=== PATIENT | female | born 1995 | race Hispanic/Latino ===

== ENCOUNTER 2018-12-05 21:33 | Emergency (ER) | payer SELFPAY ==
--- NOTE | 2018-12-05 21:45 | Emergency Department Report ---
Blank Doc - Documentation Documentation: 18 weeks preg with SOB started yesterday. . Cough no fevers. R 22, O2 sats 94% on RA. HR 98 This initial assessment diagnostic orders/clinical plan/treatment (s) is/Are subject change based on patient's health status, clinical progression and re- assessment by fellow clinical providers in the ED. Further treatment and work-up at subsequent clinical providers discretion. Patient/guardians urged not to elope from their condition may be serious if not clinically assessed and managed. Initial order include:
[2018-12-05 22:03] LABS: Basophils # (Auto) 0.1 K/mm3 (0.0-0.1); Basophils % (Auto) 0.5 % (0.0-1.8); Eosinophils # (Auto) 0.4 K/mm3 (0.0-0.4); Eosinophils % (Auto) 3.5 % (0.0-4.3); Hematocrit 37.9 % (30.3-42.9); Hemoglobin 13.4 gm/dl (10.1-14.3); Lymphocytes # (Auto) 3.3 K/mm3 (1.2-5.4); Lymphocytes % (Auto) 31.3 % (13.4-35.0); Mean Corpuscular HGB Conc 35 % (30-34); Mean Corpuscular Hemoglobin 32 pg (28-32); Mean Corpuscular Volume 89 fl (79-97); Monocytes # (Auto) 0.5 K/mm3 (0.0-0.8); Platelet Count 272 K/mm3 (140-440); Red Blood Count 4.24 M/mm3 (3.65-5.03); Red Cell Distribution Width 12.5 % (13.2-15.2)
[2018-12-05 22:19] LABS: Alanine Aminotransferase 12 units/L (7-56); Albumin 3.7 g/dL (3.9-5); BUN/Creatinine Ratio 7; Blood Urea Nitrogen 4 mg/dL (7-17); Calcium 8.7 mg/dL (8.4-10.2); Hemolysis Index 4
[2018-12-05] MEDS ORDERED: ATROVENT IH ONE (22:41)
[2018-12-05] MEDS ORDERED: PROVENTIL IH ONE (22:41)
--- NOTE | 2018-12-05 22:49 | Emergency Department Report ---
ED Shortness of Breath HPI - General Chief Complaint: Dyspnea/Respdistress Stated Complaint: 18WKS /SOB/LIGHT HEADED Time Seen by Provider: 12/05/18 22:26 Source: patient Mode of arrival: Ambulatory Limitations: No Limitations - History of Present Illness Initial Comments: 23 yo female presents to ED with complaint of shortness of breath since y esterday. Patient states she had a tooth pulled on yesterday, and since then she has been experiencing shortness of breath, nausea and vomiting, and dizziness. The patient is 18 weeks . Currently followed by [facility]. Patient denies fever, cough, chest pain, leg pain or swelling. MD Complaint: shortness of breath -: days(s) (1) Severity: mild Consistency: constant Improves With: nothing Worsens With: nothing Known History Of: asthma (as a child) Treatments Prior to Arrival: none - Related Data Previous Rx's Medication Instructions Recorded Last Taken Type ALBUTEROL Inhaler(NF) [VENTOLIN 1 puff IH Q4HR PRN #1 inha 12/05/18 Unknown Rx Inhaler(NF)] Promethazine [Phenergan TAB] 25 mg PO Q6HR PRN #20 tab 12/05/18 Unknown Rx Allergies Allergy/AdvReac Type Severity Reaction Status Date / Time Penicillins AdvReac Intermediate Unknown Verified 12/01/15 18:42 codeine AdvReac Swelling Verified 12/02/15 20:31 ED Review of Systems ROS: Stated complaint: 18WKS /SOB/LIGHT HEADED Other details as noted in HPI Comment: All other systems reviewed and negative Constitutional: denies: chills, fever Respiratory: shortness of breath. denies: cough Cardiovascular: denies: chest pain Gastrointestinal: nausea, vomiting Musculoskeletal: other (denies leg pain or swelling) ED Past Medical Hx - Past Medical History Hx Hypertension: Yes (Gestational) Hx Heart Attack/AMI: No Hx Congestive Heart Failure: No Hx Diabetes: No Hx Deep Vein Thrombosis: No Hx Renal Disease: No Hx Sickle Cell Disease: No Hx Seizures: No Hx Asthma: Yes Hx COPD: No Hx HIV: No - Surgical History Past Surgical History?: No - Social History Smoking Status: Current Every Day Smoker Substance Use Type: None - Medications Home Medications: Home Medications Medication Instructions Recorded Confirmed Last Taken Type ALBUTEROL Inhaler(NF) [VENTOLIN 1 puff IH Q4HR PRN #1 inha 12/05/18 Unknown Rx Inhaler(NF)] Promethazine [Phenergan TAB] 25 mg PO Q6HR PRN #20 tab 12/05/18 Unknown Rx ED Physical Exam - General Limitations: No Limitations General appearance: alert, in no apparent distress - Head Head exam: Present: atraumatic, normocephalic - Eye Eye exam: Present: normal appearance - ENT ENT exam: Present: mucous membranes moist - Neck Neck exam: Present: normal inspection - Respiratory Respiratory exam: Present: normal lung sounds bilaterally. Absent: respiratory distress - Cardiovascular Cardiovascular Exam: Present: regular rate - GI/Abdominal GI/Abdominal exam: Present: soft. Absent: distended, tenderness - Extremities Exam Extremities exam: Present: normal inspection. Absent: pedal edema, calf tenderness - Neurological Exam Neurological exam: Present: alert, oriented X3 - Psychiatric Psychiatric exam: Present: normal affect, normal mood - Skin Skin exam: Present: warm, dry, intact, normal color ED Course Vital Signs 12/05/18 12/05/18 12/05/18 21:36 21:44 23:13 Temperature 97.3 F L Pulse Rate 98 H Pulse Rate [ 76 Bilateral Throughout] Respiratory 22 Rate Respiratory 18 Rate [Bilateral Throughout] Blood Pressure 125/80 Blood Pressure [Left] O2 Sat by Pulse 94 Oximetry 12/05/18 23:55 Temperature 98.0 F Pulse Rate 72 Pulse Rate [ Bilateral Throughout] Respiratory 20 Rate Respiratory Rate [Bilateral Throughout] Blood Pressure Blood Pressure 110/54 [Left] O2 Sat by Pulse 98 Oximetry ED Medical Decision Making - Lab Data Result diagrams: 12/05/18 21:50 12/05/18 21:50 - Radiology Data Radiology results: report reviewed, image reviewed - Medical Decision Making Patient feeling much better following nebulizer treatment. She has been in no respiratory distress, O2 sats normal, CXR normal, D-dimer normal. Patient actualy got up and ran to the bathroom b/c she needed to use it badly. Patient returned in no distress. Will discharge at this time w/ albuterol inhaler. Return precautions given. Outpatient follow up advised. - Differential Diagnosis asthma, pneumonia, pulm edema, PE Critical care attestation.: If time is entered above; I have spent that time in minutes in the direct care of this critically ill patient, excluding procedure time. ED Disposition Clinical Impression: Dyspnea Disposition: DC-01 TO HOME OR SELFCARE Is pt being admited?: No Condition: Stable Instructions: Dyspnea (ED) Prescriptions: ALBUTEROL Inhaler(NF) [VENTOLIN Inhaler(NF)] 1 puff IH Q4HR PRN #1 inha PRN Reason: Wheezing Promethazine [Phenergan TAB] 25 mg PO Q6HR PRN #20 tab PRN Reason: Nausea Referrals: PRIMARY CARE, [Referring] - 3-5 Days Time of Disposition: 23:49
--- NOTE | 2018-12-05 22:51 | XRay Report ---
PROCEDURE: XR CHEST ROUTINE 2V TECHNIQUE: PA and lateral views of the chest HISTORY: 18 wks preg with SOB and pulse ox 94% COMPARISONS: None FINDINGS: There is no evidence of infiltrate, pneumothorax or pleural fluid collection. The cardiomediastinal silhouette is normal in appearance. The bony structures are unremarkable. IMPRESSION: 1. No plain film evidence of an acute pulmonary process. This document is electronically signed by Renetta Pimentel MD., December 05 2018 10:48:48 PM ET
[2018-12-05 23:55] VITALS: BP 110/54
== END 2018-12-06 | disposition home or self-care (01) ==
LOC: ED 21:33
DX: R06.02 Shortness of breath (principal); R06.00 Dyspnea, unspecified; R11.2 Nausea with vomiting, unspecified; R42 Dizziness and giddiness; I10 Essential (primary) hypertension; J45.909 Unspecified asthma, uncomplicated; F17.200 Nicotine dependence, unspecified, uncomplicated; Z88.0 Allergy status to penicillin; Z88.5 Allergy status to narcotic agent
CPT/HCPCS: 36415; 71046; 80053; 85025; 85379; 93005; 93010; 94640

== ENCOUNTER 2019-04-17 11:11 | Outpatient (CLI) | payer OTHER ==
[2019-04-17 11:38] VITALS: BP 100/65
[2019-04-17 12:22] LABS: Bacteria,Urine 1+ /HPF (Negative); Bilirubin,Urine NEG (Negative); Blood,Urine NEG (Negative); Color,Urine Amber (Yellow); Mucus,Urine 3+ /HPF; Urobilinogen,Urine < 2.0 mg/dL (<2.0)
--- NOTE | 2019-04-17 12:22 | Ultrasound Report ---
Limited OB Ultrasound Biophysical profile HISTORY: patient reportedly leaking fluid today, concern for premature rupture of membranes. TECHNIQUE: Grayscale and color Doppler imaging performed. COMPARISON: None FINDINGS: Limited ultrasound performed which demonstrated a single intrauterine gestation which is ce phalic in presentation. JEMMA is 12. Heart rate is 131 bpm. age was not determined on this examin ation. On biophysical profile, the fetus received a score of 2 out of 2 for breathing movements, movements, posture and Sofia, and qualitative amniotic fluid volume. Total score was 8 out of 8. IMPRESSION: 1. JEMMA of 12 with single intrauterine gestation as above. 2. Normal biophysical profile. Signer Name: Uriel Sales MD Signed: 04/17/2019 12:17 PM Workstation Name: [id number]
== END 2019-04-17 12:31 | disposition home or self-care (01) ==
LOC: TRG 11:11
PROVIDERS: ATTEND Obstetrics & Gynecology
DX: O47.03 False labor before 37 completed weeks of gestation, third trimester (principal); O13.3 Gestational [pregnancy-induced] hypertension without significant proteinuria, third trimester; O99.513 Diseases of the respiratory system complicating pregnancy, third trimester; J45.909 Unspecified asthma, uncomplicated; Z3A.34 34 weeks gestation of pregnancy
CPT/HCPCS: 76815; 76819; 81001

== ENCOUNTER 2019-05-16 21:16 | Inpatient (IN) | payer OTHER ==
[2019-05-17] MEDS ORDERED: XYLOCAINE 2% INFILTRATI ONE (00:22)
--- NOTE | 2019-05-17 00:26 | History and Physical Report ---
History of Present Illness Date of examination: 05/16/19 Date of admission: 05/16/19 21:16 Chief complaint: Here for scheduled induction of labor. History of present illness: 23 year old presented to L&D for scheduled induction of labor. Patient is having labor induced due to history of IUFD with a previous . Patient has received care at [facility], and records were able to be accessed. LMP 07/27/18. EDC 05/23/19. significant for the following: history of IUFD with a previous ; obesity, cigarette smoker, history of preeclampsia with a previous , history of genital herpes. labs are as follows: B+, antibody screen negative, hepatitis B surface antigen negative, HIV negative, RPR nonreactive, GC negative, CT negative, rubella immune, pap smear negative, 1 hour sugar test 124, quad screen negative, GBS negative. 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 denies: chlamydia, gonorrhea, hepatitis B, hepatitis C, HIV, syphilis Family/Genetic History: diabetes, heart disease, hypertension, stroke, cancer, other (lupus) Social history: lives with family, smoking, full code. denies: alcohol abuse, prescription drug abuse, IV drug use - Obstetrical History Expected Date of Delivery: 05/23/19 Actual Gestation: 39 Week(s) 1 Day(s) : 4 Para: 2 Hx # Term Pregnancies: 2 Number of Pregnancies: 0 Spontaneous Abortions: 1 Induced : 0 Medications and Allergies Allergies Allergy/AdvReac Type Severity Reaction Status Date / Time Penicillins AdvReac Intermediate Unknown Verified 12/01/15 18:42 codeine AdvReac Swelling Verified 12/02/15 20:31 Home Medications Medication Instructions Recorded Confirmed Last Taken Type ALBUTEROL Inhaler(NF) [VENTOLIN 1 puff IH Q4HR PRN #1 inha 12/05/18 Unknown Rx Inhaler(NF)] Promethazine [Phenergan TAB] 25 mg PO Q6HR PRN #20 tab 12/05/18 Unknown Rx Review of Systems All systems: negative - Physical Exam Abdomen: Positive: normal appearance, soft. Negative: distention, tenderness, guarding Genitourinary (Female): Positive: normal external genitalia (drying cluster of lesions versus rash on right buttock), normal perenium Vagina: Positive: normal moisture Uterus: Positive: enlarged. Negative: nodular, tender Anus/Rectum: Positive: normal perianal skin Extremities: Positive: normal. Negative: tenderness, edema - Obstetrical FHR: category 1 Uterine Contraction Monitor Mode: External Cervical Dilatation: 3 Cervical Effacement Percentage: 70 Uterine Contraction Pattern: Irregular Uterine Contraction Intensity: Mild Results All other labs normal. Assessment and Plan A: at 39 weeks, 1 day gestation. Previous IUFD. GBS negative. History of genital herpes, not on suppression. P: Admit. Herpes suppression with Valtrex. Continuous EFM. Will consult with Dr. Wyman re: this patient.
[2019-05-17] MEDS ORDERED: PITOCin/NS 20 UNIT/1000ML DRIP 20 UNITS/1,000 ML BAG IV SCH (01:00)
[2019-05-17] MEDS ORDERED: LACTATED RINGERS 1,000 ML IV SCH (01:00)
[2019-05-17 01:44] LABS: Hematocrit 37.3 % (30.3-42.9); Hemoglobin 12.6 gm/dl (10.1-14.3); Mean Corpuscular HGB Conc 34 % (30-34); Mean Corpuscular Volume 92 fl (79-97); Platelet Count 282 K/mm3 (140-440); Red Blood Count 4.04 M/mm3 (3.65-5.03); Red Cell Distribution Width 12.3 % (13.2-15.2)
[2019-05-17] MEDS: VALTREX PO SCH ×2 (04:26→10:59)
--- NOTE | 2019-05-17 13:36 | Progress Note ---
Assessment and Plan A: at 39 weeks, 1 day gestation. History of IUFD with her first pegnancy. GBS negative. Skin rash. History of genital herpes, has not been taking suppression during this . BPP 05/15. P: Consulted with Dr. Robles re: this patient and skin rash. Had long conversation with patient re: possible etiologies for the rash, potential that it could be an outbreak or not, herpes transmission, possible sequelae during and (including blindness, seizures, brain damage, and ). Patient states she would like to go home and take her herpes suppression for a couple of days and then return for induction. BPP/JEMMA done. Dr. Robles en route to hospital to review heart rate tracing and make decision re: disposition of patient. Herpes culture and serology done. Subjective - Subjective Date of service: 05/17/19 Principal diagnosis: at 39 weeks, 1 day gestation; history of IUFD previous ; Interval history: Patient was sent from [facility] office yesterday to be induced due to history of IUFD with her first pregnacy. Patient reportedly has a history of genital herpes but has not been on suppression for this during her . Patient reported a rash at admission yesterday; she states the rash comes and goes. Vesicular rash noted on patient's right buttock and right lower abdomen; rash appears to be drying. Patient states there it itching associated with rash. Patient was started on Valtrex 1 gram PO BID and observed on monitor overnight. She had some irregular contractions overnight. She denies vaginal bleeding or leaking of fluid. Patient reports active movement. Patient reports: movement normal, contractions, no new complaints, no loss of fluid, no vaginal bleeding Objective - Vital Signs Vital Signs: Vital Signs - 12hr 05/17/19 05/17/19 05/17/19 02:30 03:21 07:20 Temperature 97.3 F L Pulse Rate 70 68 Respiratory Rate Blood Pressure 106/57 114/64 O2 Sat by Pulse Oximetry 05/17/19 05/17/19 07:30 12:27 Temperature 97.9 F Pulse Rate 69 Respiratory 18 Rate Blood Pressure 125/58 O2 Sat by Pulse 100 Oximetry - Exam Abdomen: Present: normal appearance, soft. Absent: distention, tenderness, guarding, rigidity Uterus: Present: normal, fundal height above umbilicus. Absent: tenderness FHR: category 1 Uterine Contraction Monitor Mode: External Cervical Dilatation: 3.5 Cervical Effacement Percentage: 75 station: -2 Uterine Contraction Pattern: Irregular Uterine Contraction Intensity: Mild Extremities: normal - Labs Labs: Abnormal Labs 05/17/19 01:26 WBC 13.1 H RDW 12.3 L Laboratory Results - last 24 hr 05/17/19 05/17/19 01:26 01:26 WBC 13.1 H RBC 4.04 Hgb 12.6 Hct 37.3 MCV 92 MCH 31 MCHC 34 RDW 12.3 L Plt Count 282 Blood Type B POSITIVE Antibody Screen Negative
--- NOTE | 2019-05-17 13:53 | Ultrasound Report ---
US OB BPP WO NON-STRESS, US OB LIMITED INDICATION / CLINICAL INFORMATION: well being. Evaluate amniotic fluid index. COMPARISON: Ultrasound dated 04/17/19 TECHNIQUE: Transabdominal FINDINGS: Single intrauterine gestation with fetus in cephalic position. Amniotic fluid volume is borderline low at the fluid index of 7.0 cm. Amniotic fluid index on prior s tudy was 12 cm. heart rate is 129 bpm. BREATHING MOVEMENT = 2 GROSS BODY MOVEMENT = 2 TONE = 2 QUALITATIVE AMNIOTIC FLUID VOLUME = 2 TOTAL BIOPHYSICAL SCORE = 8/8 IMPRESSION: 1. Borderline low amniotic fluid index of 7.0 cm with decrease since prior study. 2. Total biophysical score is 8/8. Signer Name: Jose Montgomery MD Signed: 05/17/2019 1:49 PM Workstation Name: [id number]
--- NOTE | 2019-05-17 15:20 | Event Note ---
Date: 05/17/19 Dr. Robles saw and examined patient and reviewed heart rate tracing and ultrasound results. Dr. Robles orders to discharge patient home and have her rest at home, drink plenty of water, and continue Valtrex 1 gram po BID at home for HSV suppression. Dr. Robles states to have patient return to L&D on Sunday05/19/19 for BPP and JEMMA and NST and will re-evaluate rash at that time. Patient to have labor induced when rash resolves. Patient to continue to count movements daily. Labor precautions and warning signs discussed with patient by Dr. Robles. Rx Valtrex 1 sari po BID, #30, 0 RF called to [facility] pharmacy on [facility] [facility] and left on the voice mail; advised patient to pick this up at the pharmacy and take it as prescribed.
--- NOTE | 2019-05-17 15:41 | Discharge Summary ---
Providers - Providers Date of Admission: 05/16/19 21:16 Date of discharge: 05/17/19 Attending physician: Darrick Carroll MD None Primary care physician: DARRICK CARROLL MD Hospitalization Reason for admission: induction of labor Delivery: other ( at 39 weeks, 1 day gestation; undelivered) Pertinent studies: Electronic monitoring, ultrasound, labs. Hospital course: Stable hospital course; possible herpes outbreak, being suppressed with Valtrex 1 gram po BID. Cervix 3 cm and long per Dr. Carroll's exam. Dr. Carroll orders for patient to be discharged home on PO Valtrex and return to L&D on Sunday05/19/19. Condition at discharge: Good Disposition: DC-01 TO HOME OR SELFCARE - Discharge Diagnoses (1) Term Status: Acute Plan - Provider Discharge Summary Activity: other (rest at home; drink plenty of water; take Valtrex 1 gram by mouth every 12 hours as prescribed and e) Diet: routine Instructions: routine Additional instructions: [Rx Valtrex 1 gram, #30, 1 po BID called to [facility] pharmacy on [facility]. Call your doctor immediately for any problems; return to hospital if labor, leaking of water, vaginal bleeding, decreased movement, or any other problems. Return to hospital Sunday05/19/19 in the morning for NST and Ultrasound and to re-evaluate by the doctor. Drink plenty of water and rest at home. Thank you. - Follow up plan Follow up: DARRICK CARROLL MD [Primary Care Provider] - 05/19/19 (Follow up on Sunday05/19/19 here at [facility]. )
[2019-05-17] MEDS ORDERED: PEPCID PO ONE (15:53)
[2019-05-20 09:51] VITALS: BP 113/70
== END 2019-05-17 16:28 | disposition home or self-care (01) | DRG 781 ==
LOC: APU 21:16 → LD 23:36
PROVIDERS: ADMIT Obstetrics & Gynecology; ATTEND Obstetrics & Gynecology
DX: O98.313 Other infections with a predominantly sexual mode of transmission complicating pregnancy, third trimester (principal); O99.333 Smoking (tobacco) complicating pregnancy, third trimester; O99.213 Obesity complicating pregnancy, third trimester; E66.9 Obesity, unspecified; F17.210 Nicotine dependence, cigarettes, uncomplicated; Z3A.39 39 weeks gestation of pregnancy
CPT/HCPCS: 36415; 76815; 76819; 85027; 86592; 86850; 86900; 86901; 87255; 87529; G0378; J7120

== ENCOUNTER 2019-05-19 21:33 | Inpatient (IN) | payer OTHER ==
[2019-05-19] MEDS ORDERED: PITOCin/NS 30 UNIT/500ML 30 UNITS/500 ML BAG IV SCH (23:45)
[2019-05-19] MEDS ORDERED: SUBLIMAZE IV PRN (23:55)
[2019-05-19] MEDS ORDERED: STADOL IV PRN (23:55)
[2019-05-20 00:25] LABS: Hematocrit 37.2 % (30.3-42.9); Hemoglobin 12.6 gm/dl (10.1-14.3); Mean Corpuscular HGB Conc 34 % (30-34); Mean Corpuscular Volume 93 fl (79-97); Platelet Count 293 K/mm3 (140-440); Red Blood Count 3.98 M/mm3 (3.65-5.03); Red Cell Distribution Width 12.5 % (13.2-15.2)
[2019-05-20] MEDS ORDERED: PITOCin/NS 30 UNIT/500ML 30,000 MILLIUNITS/500 ML BAG IV ONE (00:56)
[2019-05-20] MEDS ORDERED: LACTATED RINGERS 1,000 ML ONE (00:56)
[2019-05-20] MEDS: LACTATED RINGERS 1,000 ML IV SCH ×3 (01:00→10:27)
[2019-05-20] MEDS ORDERED: STADOL ONE (05:20)
[2019-05-20] MEDS ORDERED: LACTATED RINGERS 2,000 ML ONE (09:11)
--- NOTE | 2019-05-20 10:31 | Anesthesia Consultation ---
Anesthesia Consult and Med Hx Date of service: 05/20/19 - Airway Anesthetic Teeth Evaluation: Good ROM Head & Neck: Adequate Mental/Hyoid Distance: Adequate Mallampati Class: Class II Intubation Access Assessment: Probably Good - Pulmonary Exam CTA: Yes - Cardiac Exam Cardiac Exam: RRR - Pre-Operative Health Status ASA Pre-Surgery Classification: ASA2 Proposed Anesthetic Plan: Epidural - Pulmonary Hx Asthma: Yes (CHILDHOOD ASTHMA) COPD: No Hx Pneumonia: No - Cardiovascular System Hx Hypertension: No Hx Coronary Artery Disease: No Hx Heart Attack/AMI: No Hx Angina: No Hx Cardia Arrhythmia: No Hx Heart Murmur: No - Central Nervous System Hx Seizures: No Hx Psychiatric Problems: No - Endocrine Hx Renal Disease: No Hx End Stage Renal Disease: No Hx Hypothyroidism: No Hx Hyperthyroidism: No - Hematic Hx Anemia: No Hx Sickle Cell Disease: No - Other Systems Hx Alcohol Use: No
[2019-05-20] MEDS ORDERED: fentaNYL-BUPIV 2 MCG/ML-0.125% 200 MCG/100 ML BAG EPIDURAL SCH (11:00)
[2019-05-20] MEDS ORDERED: NARCAN 2 MG/2 ML IV PRN (11:00)
--- NOTE | 2019-05-20 15:04 | History and Physical Report ---
History of Present Illness Date of examination: 05/20/19 Date of admission: 05/19/19 21:33 Chief complaint: Presents for IOL History of present illness: 23 yo Cauc[place] Fe , JOSELIN 05/23/2019 ([place]), 39w 4d, presents for IOL. Pt initiated early care with [facility] at 7w 6d. Co-managed with [facility]: Asthma, Smoker (2-3 cig/day), h/o IUFD @ 28 wks, h/po PIH previous , and Obesity (BMI 38.41). Early complicated with N&V. labs: B positive, Rubella Immune, VDRL non-reactive, HBsAg negative, HIV Negative, GC negative, CHL Negative, Trichomoniasis Negative, GBS Negative. 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 denies: alcohol abuse, prescription drug abuse, IV drug use - Obstetrical History Expected Date of Delivery: 05/23/19 Actual Gestation: 39 Week(s) 4 Day(s) : 4 Para: 2 Hx # Term Pregnancies: 2 Number of Pregnancies: 0 Spontaneous Abortions: 1 Induced : 0 Number of Living Children: 2 #1 Infant Gender: Male year: 2,013 Method of Delivery: Vaginal Gestational age at delivery: 28 (IUFD at 28 wks) #2 Infant Gender: Female year: 2,016 Method of Delivery: Vaginal Gestational age at delivery: 40 Complications: none Medications and Allergies Allergies Allergy/AdvReac Type Severity Reaction Status Date / Time Penicillins AdvReac Intermediate Unknown Verified 12/01/15 18:42 codeine AdvReac Swelling Verified 12/02/15 20:31 Home Medications Medication Instructions Recorded Confirmed Last Taken Type ALBUTEROL Inhaler(NF) [VENTOLIN 1 puff IH Q4HR PRN #1 inha 12/05/18 05/20/19 Unknown Rx Inhaler(NF)] Active Meds: Active Medications Butorphanol Tartrate (Stadol) 2 mg IV Q2H PRN PRN Reason: Pain , Severe (7-10) Last Admin: 05/20/19 05:19 Dose: 2 mg Documented by: Ephedrine Sulfate (Ephedrine Sulfate) 10 mg IV Q2M PRN PRN Reason: Hypotension Last Admin: 05/20/19 12:29 Dose: 10 mg Documented by: Fentanyl (Sublimaze) 100 mcg IV Q2H PRN PRN Reason: Labor Pain Oxytocin/Sodium Chloride (Pitocin/Ns 30 Unit/500ml) 30 units in 500 mls @ 1 mls/hr IV TITR KAMERON; Protocol Last Titration: 05/20/19 13:24 Dose: 18 mls/hr, 18 mls/hr Documented by: Lactated Ringer's (Lactated Ringers) 1,000 mls @ 125 mls/hr IV DIRECT KAMERON Last Admin: 05/20/19 10:27 Dose: 125 mls/hr Documented by: Fentanyl/Bupivacaine/Sodium Chlor (Fentanyl-Bupiv 2 Mcg/Ml-0.125%) 200 mcg in 100 mls @ 12 mls/hr EPIDURAL TITR KAMERON; Protocol Last Admin: 05/20/19 11:31 Dose: 12 mls/hr Documented by: Naloxone HCl (Narcan 2 Mg/2 Ml) 0.2 mg IV Q5M PRN PRN Reason: Respiratory sedation Review of Systems Eyes: normal appearance Cardiovascular: no chest pain, no shortness of breath Respiratory: no shortness of breath Breasts: normal Gastrointestinal: no abdominal pain, no nausea, no vomiting, no diarrhea, no constipation Genitourinary: normal appearance, no vaginal bleeding, no vaginal discharge, no leakage of fluid, no pelvic pain, no genital sores, no contractions Integumentary: no rash, no sores, no lesions - Vital Signs Vital signs: Vital Signs Temp Pulse Resp BP 97.9 F 82 18 116/69 05/19/19 22:56 05/19/19 22:56 05/19/19 22:56 05/19/19 22:56 Temp Pulse Resp BP Pulse Ox 98.0 F 68 18 104/55 97 05/20/19 07:57 05/20/19 14:48 05/20/19 11:24 05/20/19 14:48 05/20/19 13:21 - Physical Exam Breasts: Positive: normal Cardiovascular: Regular rate, Normal S1, Normal S2, No murmurs Lungs: Positive: Clear to auscultation, Normal air movement Abdomen: Positive: normal appearance, soft, normal bowel sounds. Negative: distention, tenderness, guarding Genitourinary (Female): Positive: normal external genitalia, normal perenium Vulva: both: normal Vagina: Positive: normal moisture Uterus: Positive: enlarged (Gravid) Anus/Rectum: Positive: normal perianal skin Extremities: Positive: normal Deep Tendon Reflex Grade: Normal +2 - Obstetrical FHR: category 1 Uterine Contraction Monitor Mode: External Cervical Dilatation: 4 (AROM; Light meconium) Cervical Effacement Percentage: 70 station: 3 Uterine Contraction Duration: 60 Uterine Contraction Pattern: Regular Uterine Tone Measurement Phase: Resting Uterine Contraction Intensity: Moderate Results Result Diagrams: 05/19/19 22:29 Abnormal lab results 05/19/19 Range/Units 22:29 WBC 15.5 H (4.5-11.0) K/mm3 RDW 12.5 L (13.2-15.2) % All other labs normal. Assessment and Plan A: Term IUP Category 1 tracing Pitocin 18mu Comfortable with epidural AROM; light meconium P: Routine labor orders Continue pitocin augmentation Anticipate
[2019-05-20] MEDS ORDERED: ZOFRAN ONE (17:41)
[2019-05-20] MEDS ORDERED: ZOFRAN IV PRN ×2 (17:52→20:16)
[2019-05-20] MEDS ORDERED: PITOCin/NS 20 UNIT/1000ML DRIP 20,000 MILLIUNITS/1,000 ML BAG IV ONE ×2 (19:10→21:24)
[2019-05-20] MEDS ORDERED: DULCOLAX PR PRN (20:16)
[2019-05-20] MEDS ORDERED: BENADRYL PO PRN (20:16)
[2019-05-20] MEDS ORDERED: PHENERGAN PR PRN (20:16)
[2019-05-20] MEDS ORDERED: MILK OF MAGNESIA PO PRN (20:16)
[2019-05-20] MEDS ORDERED: PHENERGAN PO PRN (20:16)
[2019-05-20] MEDS ORDERED: TUCKS PAD TP PRN (20:16)
[2019-05-20] MEDS ORDERED: LANSINOH TP PRN (20:16)
[2019-05-20] MEDS ORDERED: TYLENOL PO PRN (20:16)
--- NOTE | 2019-05-20 20:23 | Procedure Note ---
OB Delivery Note - Delivery Date of Delivery: 05/20/19 (20:01) Surgeon: ELVI AUGUSTE (ROMIE) Estimated blood loss: 200cc - Vaginal Delivery presentation: vertex Delivery position: OA Delivery induction: oxytocin Delivery augmentation: rupture of membranes Delivery monitor: external FHT, external uterine Route of delivery: (20:01) Delivery placenta: spontaneous (20:06) Delivery cord: 3 umbilical vessels Episiotomy: none Delivery laceration: none Anesthesia: epidural Delivery comments: viable female infant over intact perineum at 20:01 with RT and NICU present for meconium stained fluid. Cord clamped, cut and non-vigorous infant placed in pre-warmer radiant warmer for assessment. Spontaneous wen delivery of intact Placenta with 3VC at 20:06. FF@U-2. No tears or lacerations. EBL 200cc. and mother left in stable condition in L&D. - Infant A at 1 minute: 8 at 5 minutes: 9 Gender: Female (3509g, 7lbs 12oz, 19")
[2019-05-20] MEDS: IBUPROFEN PO SCH (20:59)
[2019-05-20] MEDS ORDERED: SODIUM CHLORIDE FLUSH SYRINGE 10 ML IV NR (21:00)
[2019-05-21] MEDS: IBUPROFEN PO SCH ×3 (03:41→17:44)
[2019-05-21 09:03] LABS: Hematocrit 33.3 % (30.3-42.9); Hemoglobin 11.4 gm/dl (10.1-14.3)
--- NOTE | 2019-05-21 11:10 | Progress Note ---
Assessment and Plan - Patient Problems (1) (normal spontaneous vaginal delivery) Current Visit: Yes Status: Acute Plan to address problem: Continue routine PP orders Anticipate d/c home tomorrow (2) Smoker Current Visit: Yes Status: Acute (3) Asthma Current Visit: Yes Status: Acute Qualifiers: Asthma severity: mild Asthma persistence: unspecified Asthma complication type: uncomplicated Qualified Code(s): J45.909 - Unspecified asthma, uncomplicated Subjective - Subjective Date of service: 05/21/19 Principal diagnosis: Interval history: See admission H & P and OB delivery summary Patient reports: appetite normal, voiding normally, pain well controlled, flatus, ambulating normally, no bowel movement [place]: doing well, bottle feeding (and , latch needs work) Objective - Vital Signs Latest vital signs: Vital Signs Temp Pulse Resp BP BP Pulse Ox 05/21/19 08:54 97.8 F 75 18 104/74 97 05/21/19 04:00 98.8 F 64 16 119/78 05/21/19 00:00 98.6 F 74 16 102/78 05/20/19 22:00 98.3 F 54 L 16 102/56 97 05/20/19 20:58 71 110/57 05/20/19 20:33 83 99/54 05/20/19 20:32 74 107/57 05/20/19 20:15 100.2 F H 05/20/19 20:13 94 H 124/72 05/20/19 20:10 73 110/67 05/20/19 19:19 75 116/64 05/20/19 19:02 105/60 05/20/19 18:47 93 H 99/50 05/20/19 18:32 97 H 104/75 05/20/19 18:19 90 102/68 05/20/19 18:02 77 102/55 05/20/19 17:49 87 92/52 05/20/19 17:32 93 H 106/64 05/20/19 17:17 78 98/58 05/20/19 17:02 90 123/73 05/20/19 16:47 96/53 05/20/19 16:32 66 94/50 05/20/19 16:17 67 96/53 05/20/19 16:02 73 91/50 05/20/19 15:47 73 96/52 08/13/19 15:32 68 97/54 05/20/19 15:17 69 88/50 05/20/19 15:02 73 90/50 05/20/19 14:48 68 104/55 05/20/19 14:33 77 110/67 05/20/19 14:18 69 111/58 05/20/19 14:03 63 106/61 05/20/19 13:48 68 108/67 05/20/19 13:33 67 109/52 05/20/19 13:21 66 97 05/20/19 13:17 72 101/57 05/20/19 13:16 68 96 05/20/19 13:11 53 L 97 05/20/19 13:06 55 L 97 05/20/19 13:01 62 99 05/20/19 12:58 66 103/62 05/20/19 12:56 67 98 05/20/19 12:53 74 99/57 05/20/19 12:51 65 98 05/20/19 12:48 70 103/57 05/20/19 12:46 74 97 05/20/19 12:45 71 104/59 05/20/19 12:41 71 100 05/20/19 12:38 59 L 103/55 05/20/19 12:36 71 100 05/20/19 12:34 101 H 104/58 05/20/19 12:33 59 L 108/56 05/20/19 12:31 69 99 05/20/19 12:28 64 97/53 05/20/19 12:26 58 L 99 05/20/19 12:23 75 91/53 05/20/19 12:21 60 99 05/20/19 12:19 67 88/54 05/20/19 12:16 64 98 05/20/19 12:14 70 94/53 05/20/19 12:11 63 98 05/20/19 12:06 74 97 05/20/19 12:03 68 99/55 05/20/19 12:01 62 99 05/20/19 11:59 60 96/51 05/20/19 11:56 70 97 05/20/19 11:53 55 L 109/52 05/20/19 11:51 67 97 05/20/19 11:49 64 125/58 05/20/19 11:46 72 98 05/20/19 11:43 59 L 99/54 05/20/19 11:41 74 98 05/20/19 11:38 70 95/50 05/20/19 11:33 51 L 98/56 96 05/20/19 11:29 56 L 97/56 05/20/19 11:28 60 96 05/20/19 11:24 56 L 18 104/59 104/59 05/20/19 11:23 52 L 98 05/20/19 11:19 65 114/58 05/20/19 11:18 41 L 98 05/20/19 11:15 60 18 109/58 97 05/20/19 11:14 60 109/58 05/20/19 11:13 58 L 97 05/20/19 11:09 60 108/58 05/20/19 11:08 51 L 97 Intake and Output 05/20/19 05/21/19 05/21/19 23:59 07:59 15:59 Intake Total 840 Output Total 900 950 Balance -900 -950 840 Intake: Oral 600 Intake, Free Water 240 Output: Urine 900 950 Indwelling Catheter 900 Void 950 Other: Total, Intake Amount 240 Total, Output Amount 900 950 # Voids Void 3 1 Weight 91.72 kg Estimated Blood Loss 200 - Exam Breasts: Present: normal Cardiovascular: Present: Regular rate Lungs: Present: Normal air movement Abdomen: Present: soft, normal bowel sounds Uterus: Present: firm, fundal height below umbilicus (U-2) Extremities: Present: normal Deep Tendon Reflex Grade: Normal +2
--- NOTE | 2019-05-21 11:13 | Discharge Summary ---
Providers - Providers Date of Admission: 05/19/19 21:33 Date of discharge: 05/22/19 (0900) Attending physician: DARRICK CARROLL MD Primary care physician: DARRICK CARROLL MD Hospitalization Reason for admission: IUP - , induction of labor Delivery: Episiotomy: none Laceration: none Other procedures: none complications: none Discharge diagnosis: IUP at term delivered [place] baby: female Hospital course: See admission H & P, OB delivery summary and PP progress notes Condition at discharge: Good Disposition: DC-01 TO HOME OR SELFCARE - Discharge Diagnoses (1) (normal spontaneous vaginal delivery) Status: Acute (2) Smoker Status: Acute (3) Asthma Status: Acute Qualifiers: Asthma severity: mild Asthma persistence: unspecified Asthma complication type: uncomplicated Qualified Code(s): J45.909 - Unspecified asthma, uncomplicated Plan - Provider Discharge Summary Activity: routine, no sex for 6 weeks, no heavy lifting 4 weeks, no strenuous exercise Diet: routine Instructions: routine Additional instructions: [] Smoking cessation referral if applicable(refer to patient education folder for contact #) [] Refer to [facility] Booklet Call your doctor immediately for: * Fever > 100.5 * Heavy vaginal bleeding ( >1 pad per hour) * Severe persistent headache * Shortness of breath * Reddened, hot, painful area to leg or breast * Drainage or odor from incision. - Follow up plan Follow up: DARRICK CARROLL MD [Primary Care Provider] - 6 Weeks
[2019-05-21] MEDS: NORCO 5/325 PO PRN (22:20)
[2019-05-22] MEDS: IBUPROFEN PO SCH ×2 (10:52→12:27)
[2019-05-22] MEDS: NORCO 5/325 PO PRN (10:54)
[2019-05-22 14:20] VITALS: BP 101/66
== END 2019-05-22 14:10 | disposition home or self-care (01) | DRG 775 ==
LOC: LD 21:33 → OB 05-20 22:14
PROVIDERS: ADMIT Obstetrics & Gynecology; ATTEND Obstetrics & Gynecology
PROC: 10E0XZZ Delivery of Products of Conception, External Approach (ICD-10-PCS; principal; 2019-05-20)
PROC: 3E0R3BZ Introduction of Anesthetic Agent into Spinal Canal, Percutaneous Approach (ICD-10-PCS; 2019-05-20)
PROC: 00HU33Z Insertion of Infusion Device into Spinal Canal, Percutaneous Approach (ICD-10-PCS; 2019-05-20)
PROC: 3E033VJ Introduction of Other Hormone into Peripheral Vein, Percutaneous Approach (ICD-10-PCS; 2019-05-20)
DX: O99.334 Smoking (tobacco) complicating childbirth (principal); Z3A.39 39 weeks gestation of pregnancy; Z88.6 Allergy status to analgesic agent; Z88.0 Allergy status to penicillin; F17.200 Nicotine dependence, unspecified, uncomplicated; O99.52 Diseases of the respiratory system complicating childbirth; O77.0 Labor and delivery complicated by meconium in amniotic fluid; Z37.0 Single live birth
CPT/HCPCS: 36415; 85014; 85018; 85027; 86592; 86850; 86900; 86901; G0378; A6250; J0595; J2405; J2590; J7120

== ENCOUNTER 2020-12-28 15:10 | Emergency (ER) | payer OTHER | END 2020-12-28 16:45 | disposition left against medical advice (07) | LOC: ED 15:10 | DX: Z53.21 Procedure and treatment not carried out due to patient leaving prior to being seen by health care provider (principal) ==

== ENCOUNTER 2021-05-19 21:08 | Outpatient (CLI) | payer OTHER ==
[2021-05-19 21:42] VITALS: BP 112/72
== END 2021-05-20 00:19 | disposition home or self-care (01) ==
LOC: TRG 21:08 → APU 21:16 → TRG 05-20 00:19
PROVIDERS: ATTEND Obstetrics & Gynecology
DX: Z34.93 Encounter for supervision of normal pregnancy, unspecified, third trimester (principal); Z3A.35 35 weeks gestation of pregnancy
CPT/HCPCS: 36415; 59025; 84112

== ENCOUNTER 2021-05-30 08:22 | Inpatient (IN) | payer OTHER ==
[2021-05-30] MEDS ORDERED: LOPERAMIDE 2 MG CAP PO PRN (10:28)
[2021-05-30] MEDS ORDERED: OXYTOCIN 10 UNIT/1 ML INJ IM PRN (10:28)
[2021-05-30] MEDS ORDERED: TERBUTALINE 1 MG/1 ML INJ SUB-Q PRN (10:28)
[2021-05-30] MEDS ORDERED: LIDOCAINE (2%) 20 MG/1 ML VIAL 20 ML MDV INFILTRATI NR (10:28)
[2021-05-30] MEDS ORDERED: METHYLERGONOVINE MALEATE 0.2 MG/ML VIAL IM PRN (10:28)
[2021-05-30] MEDS ORDERED: OXYTOCIN DRIP 30 UNITS/500 ML BAG IV SCH (11:00)
[2021-05-30] MEDS ORDERED: miSOPROStol 200 MCG TAB PR PRN (12:00)
[2021-05-30] MEDS ORDERED: ACETAMINOPHEN 325 MG TAB PO PRN (12:00)
[2021-05-30] MEDS ORDERED: CARBOPROST TROMETHAMINE 250 MCG/1 ML INJ IM PRN (12:00)
[2021-05-30] MEDS ORDERED: ePHEDrine SULFATE 50 MG/1 ML INJ IV PRN (12:00)
[2021-05-30] MEDS ORDERED: fentaNYL 100 MCG/2 ML INJ IV PRN (12:00)
[2021-05-30] MEDS ORDERED: BUTORPHANOL 2 MG/1 ML INJ IV PRN (12:30)
[2021-05-30 13:24] LABS: Hematocrit 37.4 % (30.3-42.9); Hemoglobin 12.5 gm/dl (10.1-14.3); Mean Corpuscular HGB Conc 34 % (30-34); Mean Corpuscular Volume 91 fl (79-97); Platelet Count 302 K/mm3 (140-440); Red Blood Count 4.13 M/mm3 (3.65-5.03); Red Cell Distribution Width 13.3 % (13.2-15.2)
[2021-05-30 13:35] LABS: Bacteria,Urine 4+ /HPF (Negative); Bilirubin,Urine NEG (Negative); Blood,Urine MOD (Negative); Color,Urine Yellow (Yellow); Mucus,Urine FEW /HPF; Protein,Urine <15 mg/dL mg/dL (Negative); Urobilinogen,Urine < 2.0 mg/dL (<2.0)
[2021-05-30 13:36] LABS: Alanine Aminotransferase 12 units/L (7-56); Uric Acid 3.8 mg/dL (3.5-7.6)
[2021-05-30 13:39] LABS: WBC,Urine > 182.0 /HPF (0.0-6.0)
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
[2021-05-30] MEDS ORDERED: MINERAL OIL 30 ML ORAL LIQD PO PRN (22:00)
[2021-05-30] MEDS: OXYTOCIN DRIP 30 UNITS/500 ML BAG IV SCH (22:04)
[2021-05-31] MEDS: LACTATED RINGERS 1,000 ML IV SCH ×3 (01:07→18:22)
--- NOTE | 2021-05-31 08:28 | Event Note ---
Date: 05/31/21 Assumed care of patient at 08:00.
--- NOTE | 2021-05-31 14:48 | Event Note ---
Date: 05/31/21 Patient requests to eat. SVE unchanged. Pitocin turned off. When contractions space, will allow patient to eat. Will restart Pitocin in several hours. Category 1 FHR tracing.
[2021-05-31] MEDS: OXYTOCIN DRIP 30 UNITS/500 ML BAG IV SCH (18:23)
[2021-05-31 19:02] VITALS: BP 96/51
== END 2021-05-31 20:00 | disposition home or self-care (01) | DRG 781 ==
LOC: LD 08:22
DX: O36.5930 Maternal care for other known or suspected poor fetal growth, third trimester, not applicable or unspecified (principal); O98.513 Other viral diseases complicating pregnancy, third trimester; O99.213 Obesity complicating pregnancy, third trimester; E66.01 Morbid (severe) obesity due to excess calories; O16.3 Unspecified maternal hypertension, third trimester; B00.9 Herpesviral infection, unspecified; Z20.822 Contact with and (suspected) exposure to COVID-19; K58.9 Irritable bowel syndrome, unspecified; O99.613 Diseases of the digestive system complicating pregnancy, third trimester; Z3A.37 37 weeks gestation of pregnancy; Z82.49 Family history of ischemic heart disease and other diseases of the circulatory system
CPT/HCPCS: 36415; 81001; 82565; 83615; 84450; 84460; 84550; 85027; 86850; 86900; 86901; G0378; J2590; J3010; J7120; U0003

== ENCOUNTER 2021-06-03 19:37 | Observation (INO) | payer OTHER ==
[2021-06-03 20:49] VITALS: BP 135/71
--- NOTE | 2021-06-06 08:14 | Ultrasound Report ---
ULTRASOUND OBSTETRIC LIMITED ULTRASOUND BIOPHYSICAL PROFILE INDICATION / CLINICAL INFORMATION: BPP. JEMMA. Clinical Gestational Age (GA) in weeks, days: 37, 5 TECHNIQUE: Transabdominal. COMPARISON: None available. FINDINGS: BREATHING MOVEMENT = 2 GROSS BODY MOVEMENT = 2 TONE = 2 QUALITATIVE AMNIOTIC FLUID VOLUME = 2 TOTAL BIOPHYSICAL SCORE = 8/8 HEART RATE (beats per minute): 135 AMNIOTIC FLUID INDEX (cm) = 13.3 (normal = 7-24 cm) PRESENTATION: Cephalic. ADDITIONAL FINDINGS: None. IMPRESSION: 1. Biophysical Score = 8/8 2. Normal amniotic fluid index. Signer Name: Jose Montgomery MD Signed: 06/03/2021 9:30 PM Workstation Name: [id number]
== END 2021-06-03 22:08 | disposition home or self-care (01) ==
LOC: LD 19:37 → INTOOBSV 19:37 → APU 20:10
PROVIDERS: ADMIT Obstetrics & Gynecology; ATTEND Obstetrics & Gynecology
DX: O62.9 Abnormality of forces of labor, unspecified (principal); Z3A.37 37 weeks gestation of pregnancy; Z98.891 History of uterine scar from previous surgery
CPT/HCPCS: 59025; 76815; 76819; G0378; G0379

== ENCOUNTER 2021-06-22 16:11 | Inpatient (IN) | payer OTHER ==
[2021-06-22] MEDS ORDERED: LACTATED RINGERS 1,000 ML ONE (17:35)
[2021-06-22] MEDS ORDERED: LIDOCAINE (2%) 20 MG/1 ML VIAL 20 ML MDV INFILTRATI ONE (18:40)
[2021-06-22] MEDS ORDERED: LOPERAMIDE 2 MG CAP PO PRN (18:40)
[2021-06-22] MEDS ORDERED: ePHEDrine SULFATE 50 MG/1 ML INJ IV PRN (18:40)
[2021-06-22] MEDS ORDERED: TERBUTALINE 1 MG/1 ML INJ SUB-Q PRN (18:40)
[2021-06-22] MEDS ORDERED: miSOPROStol 200 MCG TAB PR PRN (18:40)
[2021-06-22] MEDS ORDERED: MINERAL OIL 30 ML ORAL LIQD PO PRN (18:40)
[2021-06-22] MEDS ORDERED: METHYLERGONOVINE MALEATE 0.2 MG/ML VIAL IM PRN (18:40)
[2021-06-22] MEDS ORDERED: OXYTOCIN 10 UNIT/1 ML INJ IM PRN (18:40)
[2021-06-22] MEDS ORDERED: CARBOPROST TROMETHAMINE 250 MCG/1 ML INJ IM PRN (18:50)
[2021-06-22] MEDS ORDERED: OXYTOCIN DRIP 30 UNITS/500 ML BAG IV SCH ×2 (19:00)
[2021-06-22] MEDS ORDERED: LACTATED RINGERS 1,000 ML IV SCH (19:00)
[2021-06-22 19:07] LABS: Hematocrit 36.3 % (30.3-42.9); Hemoglobin 12.7 gm/dl (10.1-14.3); Mean Corpuscular HGB Conc 35 % (30-34); Mean Corpuscular Volume 89 fl (79-97); Platelet Count 307 K/mm3 (140-440); Red Blood Count 4.06 M/mm3 (3.65-5.03)
[2021-06-22] MEDS ORDERED: ACETAMINOPHEN 325 MG TAB PO PRN (21:26)
[2021-06-22] MEDS ORDERED: NALOXONE 2 MG/2 ML INJ IV PRN (23:09)
--- NOTE | 2021-06-22 23:09 | Anesthesia Consultation ---
Anesthesia Consult and Med Hx Date of service: 06/22/21 - Airway Anesthetic Teeth Evaluation: Poor ROM Head & Neck: Adequate Mental/Hyoid Distance: Adequate Mallampati Class: Class II Intubation Access Assessment: Good - Pulmonary Exam CTA: Yes - Cardiac Exam Cardiac Exam: RRR - Pre-Operative Health Status ASA Pre-Surgery Classification: ASA2 Proposed Anesthetic Plan: Epidural - Pulmonary Hx Smoking: No Hx Asthma: Yes (as a child) Hx Respiratory Symptoms: No SOB: No COPD: No Home Oxygen Therapy: No Hx Pneumonia: No Hx Sleep Apnea: No - Cardiovascular System Hx Hypertension: Yes Hx Coronary Artery Disease: No Hx Heart Attack/AMI: No Hx Angina: No Hx Percutaneous Transluminal Coronary Angioplasty (PTCA): No Hx Cardia Arrhythmia: No Hx Pacemaker: No Hx Internal Defibrillator: No Hx Valvular Heart Disease: No Hx Heart Murmur: No - Central Nervous System Hx Neuromuscular Disorder: No Hx Seizures: No CVA: No Hx Back Pain: Yes Hx Psychiatric Problems: No - Gastrointestinal Hx Ulcer: No Hx Gastroesophageal Reflux Disease: No - Endocrine Hx Renal Disease: No Hx End Stage Renal Disease: No Hx Cirrhosis: No Hx Liver Disease: No Hx Insulin Dependent Diabetes: No Hx Non-Insulin Dependent Diabetes: No Hx Thyroid Disease: No Hx Hypothyroidism: No Hx Hyperthyroidism: No - Hematic Hx Anemia: Yes Hx Sickle Cell Disease: No - Other Systems Hx Alcohol Use: No Hx Substance Use: No Hx Cancer: No Hx Obesity: Yes
--- NOTE | 2021-06-22 23:39 | Progress Note ---
Labor Epidural - Labor Epidural Start Time: 11:18 Stop Time: 11:30 Performed by:: PARDEEP JAIN Procedure: Patient is requesting a laboring epidural for laboring pain. Patient IDed, H&P reviewed, all questions and concerns were answered, and consent was signed. Timeout was performed at bedside. Patient in sitting position. Sterile prep and drape was performed. [3] ml of 1% lidocaine skin wheal at L[3]- L [4]. 18- gauge Dishcrawltead epidural needle was advanced to loss of resistance with saline technique 8cm. Negative CSF negative blood. Epidural catheter advanced to [12] centimeters. [NEGATIVE] Aspiration [NEGATIVE] test dose. Sterile dressing applied. Patient tolerated procedure.
[2021-06-22] MEDS ORDERED: fentaNYL-BUPIV 2 MCG/ML-0.125% 200 MCG/100 ML BAG EPIDURAL SCH (23:45)
[2021-06-23] MEDS: ePHEDrine SULFATE 50 MG/1 ML INJ IV PRN ×2 (01:24→02:59)
[2021-06-23] MEDS ORDERED: ONDANSETRON 4 MG/2 ML INJ ONE (03:08)
--- NOTE | 2021-06-23 04:14 | History and Physical Report ---
History of Present Illness Date of examination: 06/23/21 Date of admission: 06/22/2021 Chief complaint: Presents for a scheduled induction of labor History of present illness: Early entry to care, 1st trimester complicated by Hyperemsis, and IBS, co-managed with [facility], 2nd and 3rd trimesters complicated by IUGR. +HSV II (taking suppression). Patient also a Smoker. 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 Family/Genetic History: diabetes (PGM, Aunt, Uncle), heart disease (Father06/19/2021), hypertension (Mother, PGM, Aunt, Uncle), stroke (Father), cancer (Mother: Ovarian and Cerical Ca) - Obstetrical History Expected Date of Delivery: 06/19/21 Actual Gestation: 40 Week(s) 4 Day(s) : 5 Para: 3 Hx # Term Pregnancies: 3 Number of Pregnancies: 1 Number of Living Children: 3 #1 Infant Gender: Male year: 2,013 Method of Delivery: Vaginal Complications: other (IUFD at 8 months) #2 Gender: Female year: 2,[birth year] Birthweight: 2.892 kg Method of Delivery: Vaginal Gestational age at delivery: 40 Complications: none #3 Infant Gender: Male year: 2,[birth year] Birthweight: 3.345 kg Method of Delivery: Vaginal Gestational age at delivery: 40 #4 Infant Gender: Female year: 2,019 Birthweight: 3.487 kg Method of Delivery: Vaginal Gestational age at delivery: 39 Medications and Allergies Allergies Allergy/AdvReac Type Severity Reaction Status Date / Time Penicillins AdvReac Intermediate Unknown Verified 12/01/15 18:42 codeine AdvReac Swelling Verified 12/02/15 20:31 Home Medications Medication Instructions Recorded Confirmed Last Taken Type ALBUTEROL Inhaler(NF) [VENTOLIN 1 puff IH Q4HR PRN #1 inha 12/05/18 05/20/19 Unknown Rx Inhaler(NF)] Active Meds: Active Medications Acetaminophen (Acetaminophen 325 Mg Tab) 650 mg PO Q4H PRN PRN Reason: Pain, Mild (1-3) Last Admin: 06/22/21 21:40 Dose: 650 mg Documented by: Carboprost Tromethamine (Carboprost Tromethamine 250 Mcg/1 Ml Inj) 250 mcg IM ONCE PRN PRN Reason: Uterine Bleeding Ephedrine Sulfate (Ephedrine Sulfate 50 Mg/1 Ml Inj) 10 mg IV Q2M PRN PRN Reason: Hypotension Last Admin: 06/23/21 02:59 Dose: 10 mg Documented by: Oxytocin/Sodium Chloride (Pitocin/Ns 30 Unit/500ml) 30 units in 500 mls @ 2 mls/hr IV TITR KAMERON; Protocol Last Admin: 06/22/21 20:27 Dose: 2 ml/hr, 2 mls/hr Documented by: Lactated Ringer's (Lactated Ringers) 1,000 mls @ 125 mls/hr IV DIRECT KAMERON Oxytocin/Sodium Chloride (Pitocin/Ns 30 Unit/500ml) 30 units in 500 mls @ 40 mls/hr IV TITR KAMERON; Protocol Fentanyl/Bupivacaine/Sodium Chlor (Fentanyl-Bupiv 2 Mcg/Ml-0.125%) 200 mcg in 100 mls @ 12 mls/hr EPIDURAL TITR KAMERON; Protocol Last Admin: 06/23/21 00:02 Dose: 12 mls/hr Documented by: Loperamide HCl (Loperamide 2 Mg Cap) 2 mg PO ONCE PRN PRN Reason: give with Hemabate Methylergonovine Maleate (Methylergonovine Maleate 0.2 Mg/Ml Vial) 0.2 mg IM ONCE PRN PRN Reason: Uterine Bleeding Mineral Oil (Mineral Oil 30 Ml Oral Liqd) 30 ml PO QHS PRN PRN Reason: Constipation Misoprostol (Misoprostol 200 Mcg Tab) 800 mcg NV ONCE PRN PRN Reason: Uterine Bleeding Naloxone HCl (Naloxone 2 Mg/2 Ml Inj) 0.2 mg IV Q5M PRN PRN Reason: Respiratory sedation Oxytocin (Oxytocin 10 Unit/1 Ml Inj) 10 unit IM ONCE PRN PRN Reason: Uterine Bleeding Terbutaline Sulfate (Terbutaline 1 Mg/1 Ml Inj) 0.25 mg SUB-Q ONCE PRN PRN Reason: Hyperstimulation/Hypertonicity Review of Systems All systems: negative - Vital Signs Vital signs: Vital Signs Pulse Pulse Ox 86 99 06/22/21 16:37 06/22/21 16:37 Temp Pulse Resp BP Pulse Ox 98.1 F 64 88/59 98 06/22/21 19:25 06/23/21 04:06 06/23/21 04:03 06/23/21 04:06 - Physical Exam Breasts: Positive: normal Cardiovascular: Regular rate Lungs: Positive: Clear to auscultation, Normal air movement Abdomen: Positive: normal appearance, soft, normal bowel sounds Genitourinary (Female): Positive: normal external genitalia, normal perenium Uterus: Positive: enlarged Anus/Rectum: Positive: normal perianal skin Extremities: Positive: normal - Obstetrical FHR: category 1 Uterine Contraction Monitor Mode: External Cervical Dilatation: 8 (Small amount of clear fluid upon AROM at 0401) Cervical Effacement Percentage: 90 station: -2 Uterine Contraction Pattern: Regular Uterine Tone Measurement Phase: Resting Uterine Contraction Intensity: Moderate Results Result Diagrams: 06/22/21 18:20 Abnormal lab results 06/22/21 Range/Units 18:20 MCHC 35 H (30-34) % RDW 13.0 L (13.2-15.2) % All other labs normal. Assessment and Plan A: IUP @ 40 4/7 Weeks Category I Tracing Smoker HSV II P: Admit to L&D per Routine orders Continue Pitocin Induction AROM Anticipate
[2021-06-23] MEDS ORDERED: diphenhydrAMINE 25 MG CAP PO PRN (04:53)
[2021-06-23] MEDS ORDERED: HYDROcodone/ACETAMINOPHEN 5-325 MG TAB PO PRN (04:53)
--- NOTE | 2021-06-23 05:00 | Procedure Note ---
OB Delivery Note - Delivery Date of Delivery: 06/23/21 (0441) Surgeon: SHRAVAN WHATLEY Estimated blood loss: 200cc - Vaginal Delivery presentation: vertex Delivery position: OA Intrapartum events: none Delivery induction: oxytocin Delivery augmentation: rupture of membranes, pitocin Delivery monitor: external FHT, external uterine Route of delivery: Delivery placenta: spontaneous Delivery cord: 3 umbilical vessels Episiotomy: none Delivery laceration: none Anesthesia: epidural Delivery comments: of a live 6'14 male infant over a intact perineum under epidural with Apgars of 8 and 9 at 0441 on 06/23/2021. Infant directly to maternal abd/chest, skin to skin contact. Spontaneous delivery of placenta complete and intact with [place] side presenting at 0445. Fundus is firm and midline located 5 below the U. Lochia is scant. Delayed cord clamping and cutting; Cord cut by the Father of the Baby. - A at 1 minute: 8 at 5 minutes: 9 Infant Gender: Male (6'14)
[2021-06-23] MEDS ORDERED: KETOROLAC 30 MG/1 ML INJ IV PRN (05:01)
[2021-06-23] MEDS: PRENATAL VIT27-FE FUMARATE-FOLIC ACID VIT TAB PO SCH (14:30)
[2021-06-23] MEDS: IBUPROFEN 600 MG TAB PO SCH ×2 (14:30→20:24)
--- NOTE | 2021-06-23 16:30 | Post Anesthesia Evaluation ---
- Post Anesthesia Evaluation Patient Participated: Yes Airway Patent: Yes Stable Respiratory Function: Yes Nausea/Vomiting: No Temp > 96.8F: Yes Pain Manageable: Yes Adequeate Hydration: Yes Anesthesia Complications: No Block Receding Appropriately: Yes Patient on Ventilator: No
[2021-06-23 19:17] LABS: Hematocrit 35.9 % (30.3-42.9); Hemoglobin 12.2 gm/dl (10.1-14.3)
[2021-06-23] MEDS: ACETAMINOPHEN 325 MG TAB PO PRN (23:29)
[2021-06-24] MEDS: IBUPROFEN 600 MG TAB PO SCH ×3 (00:47→13:16)
[2021-06-24] MEDS: ACETAMINOPHEN 325 MG TAB PO PRN ×2 (09:21→16:21)
[2021-06-24] MEDS: PRENATAL VIT27-FE FUMARATE-FOLIC ACID VIT TAB PO SCH (09:21)
--- NOTE | 2021-06-24 20:12 | Progress Note ---
Assessment and Plan A: day 1 S/P . P: Discharge patient home. Discussed with patient discharge instructions and warning signs. Advised patient to continue taking vitamin at home. Advised patient to avoid intercourse, lifting, housework, driving, tub baths (patient may take showers). Advised patient to follow up at [facility] office in 2 weeks. Subjective - Subjective Date of service: 06/24/21 Principal diagnosis: day 1 S/P Interval history: Patient insists on discharge home today. She states she has other children at home to care for. Patient reports: appetite normal, voiding normally, pain well controlled, flatus, ambulating normally, no dizzy ambulation, no nauseated [place]: doing well, bottle feeding Objective - Vital Signs Latest vital signs: Vital Signs Temp Pulse Resp BP Pulse Ox Pulse Ox 06/24/21 18:07 98 06/24/21 16:18 66 119/64 98 06/24/21 16:04 97.9 F 57 L 18 127/82 95 06/24/21 12:34 98 06/24/21 12:32 98.0 F 66 19 116/85 97 06/24/21 10:00 98 06/24/21 09:08 97.9 F 71 18 112/66 96 06/24/21 08:27 98 06/24/21 05:20 98 06/24/21 03:35 98 06/24/21 01:40 97 06/24/21 01:26 98.1 F 73 18 111/67 97 06/23/21 23:30 97 06/23/21 21:20 97 06/23/21 20:20 98 Intake and Output 06/24/21 06/24/21 06/24/21 07:59 15:59 23:59 Intake Total 600 Balance 600 Intake: Intake, Free Water 600 Other: # Voids Void 1 - Exam Cardiovascular: Present: Regular rate Lungs: Present: Clear to auscultation Abdomen: Present: normal appearance, soft, normal bowel sounds. Absent: distention, tenderness, guarding, rigidity Uterus: Present: normal, firm, fundal height below umbilicus (FH at 2 FB below umbilicus). Absent: bogginess, tenderness Extremities: Present: normal. Absent: tenderness, edema
--- NOTE | 2021-06-24 20:14 | Discharge Summary ---
Providers - Providers Date of Admission: 06/23/21 04:41 Date of discharge: 06/24/21 Attending physician: YADIRA BRADFORD MD Primary care physician: YADIRA BRADFORD MD Hospitalization Reason for admission: induction of labor Delivery: Episiotomy: none Laceration: none Other procedures: none complications: none Discharge diagnosis: IUP at term delivered [place] baby: male Pertinent studies: Labs Hospital course: Stable hospital course Condition at discharge: Good Disposition: 01 HOME / SELF CARE / HOMELESS - Discharge Diagnoses (1) Term delivered Status: Acute Plan - Provider Discharge Summary Activity: routine, no sex for 6 weeks, no heavy lifting 4 weeks, no strenuous exercise Diet: routine Instructions: routine Additional instructions: Continue taking your vitamins at home. Follow up at [facility] office in 2 weeks. Call your doctor immediately for: * Fever > 100.5 * Heavy vaginal bleeding ( >1 pad per hour) * Severe persistent headache * Shortness of breath * Reddened, hot, painful area to leg or breast - Follow up plan Follow up: YADIRA BRADFORD MD [Primary Care Provider] - 14 Days
[2021-06-24 20:45] VITALS: BP 120/73
== END 2021-06-24 21:38 | disposition home or self-care (01) | DRG 774 ==
LOC: TRG 16:11 → LD 16:12 → TRG 06-23 04:41 → LD 06-23 04:41 → OB 06-23 10:23
PROC: 10E0XZZ Delivery of Products of Conception, External Approach (ICD-10-PCS; principal; 2021-06-23)
PROC: 10907ZC Drainage of Amniotic Fluid, Therapeutic from Products of Conception, Via Natural or Artificial Opening (ICD-10-PCS; 2021-06-23)
PROC: 3E0R3BZ Introduction of Anesthetic Agent into Spinal Canal, Percutaneous Approach (ICD-10-PCS; 2021-06-23)
PROC: 00HU33Z Insertion of Infusion Device into Spinal Canal, Percutaneous Approach (ICD-10-PCS; 2021-06-23)
PROC: 3E033VJ Introduction of Other Hormone into Peripheral Vein, Percutaneous Approach (ICD-10-PCS; 2021-06-23)
DX: O98.52 Other viral diseases complicating childbirth (principal); Z37.0 Single live birth; O99.214 Obesity complicating childbirth; O99.02 Anemia complicating childbirth; D64.9 Anemia, unspecified; Z3A.40 40 weeks gestation of pregnancy; O99.334 Smoking (tobacco) complicating childbirth; F17.200 Nicotine dependence, unspecified, uncomplicated; B00.9 Herpesviral infection, unspecified; O36.5930 Maternal care for other known or suspected poor fetal growth, third trimester, not applicable or unspecified; Z20.822 Contact with and (suspected) exposure to COVID-19; Z88.5 Allergy status to narcotic agent; Z88.0 Allergy status to penicillin
CPT/HCPCS: 36415; 85014; 85018; 85027; 86850; 86900; 86901; G0378; J2405; J2590; J7120; U0003

== ENCOUNTER 2022-02-24 17:19 | Emergency (ER) | payer OTHER | END 2022-02-24 19:00 | disposition left against medical advice (07) | LOC: ED 17:19 | DX: M79.673 Pain in unspecified foot (principal); Z53.21 Procedure and treatment not carried out due to patient leaving prior to being seen by health care provider ==

== ENCOUNTER 2022-06-27 08:55 | Inpatient (IN) | payer OTHER ==
[2022-06-27] MEDS ORDERED: LACTATED RINGERS 1,000 ML IV SCH (09:00)
--- NOTE | 2022-06-27 09:22 | History and Physical Report ---
History of Present Illness Date of examination: 06/27/22 Date of admission: Jun 27, 2022 Chief complaint: I'm having contractions History of present illness: 26 Y/O @ 40.2 weeks with Care [employer] presents to labor and delivery in active labor. 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 Family/Genetic History: hypertension Social history: smoking - Obstetrical History Expected Date of Delivery: 06/25/22 Actual Gestation: 40 Week(s) 2 Day(s) : 6 Para: 4 Spontaneous Abortions: 1 Number of Living Children: 4 Medications and Allergies Allergies Allergy/AdvReac Type Severity Reaction Status Date / Time Penicillins AdvReac Intermediate Unknown Verified 12/01/15 18:42 codeine AdvReac Swelling Verified 12/02/15 20:31 Home Medications Medication Instructions Recorded Confirmed Last Taken Type ALBUTEROL Inhaler(NF) [VENTOLIN 1 puff IH Q4HR PRN #1 inha 12/05/18 06/23/21 Unknown Rx Inhaler(NF)] Active Meds: Active Medications Acetaminophen (Acetaminophen 325 Mg Tab) 650 mg PO Q4H PRN PRN Reason: Pain, Mild (1-3) Butorphanol Tartrate (Butorphanol 2 Mg/1 Ml Inj) 2 mg IV Q2H PRN PRN Reason: Pain , Severe (7-10) Butorphanol Tartrate (Butorphanol 2 Mg/1 Ml Inj) 1 mg IV Q2H PRN PRN Reason: Pain, Moderate(4-6) LABOR PAIN Carboprost Tromethamine (Carboprost Tromethamine 250 Mcg/1 Ml Inj) 250 mcg IM ONCE PRN PRN Reason: Uterine Bleeding Ephedrine Sulfate (Ephedrine Sulfate 50 Mg/1 Ml Inj) 10 mg IV Q2M PRN PRN Reason: Hypotension Oxytocin/Sodium Chloride (Pitocin/Ns 30 Unit/500ml) 30 units in 500 mls @ 2 mls/hr IV TITR KAMERON; Protocol Lactated Ringer's (Lactated Ringers) 1,000 mls @ 125 mls/hr IV DIRECT KAMERON Oxytocin/Sodium Chloride (Pitocin/Ns 30 Unit/500ml) 30 units in 500 mls @ 40 mls/hr IV TITR KAMERON; Protocol Lidocaine (Lidocaine (2%) 20 Mg/1 Ml Vial 20 Ml Mdv) 20 ml INFILTRATI ONCE ONE Stop: 06/27/22 08:59 Loperamide HCl (Loperamide 2 Mg Cap) 2 mg PO ONCE PRN PRN Reason: give with Hemabate Methylergonovine Maleate (Methylergonovine Maleate 0.2 Mg/Ml Vial) 0.2 mg IM ONCE PRN PRN Reason: Uterine Bleeding Mineral Oil (Mineral Oil 30 Ml Oral Liqd) 30 ml PO QHS PRN PRN Reason: Constipation Misoprostol (Misoprostol 200 Mcg Tab) 800 mcg NV ONCE PRN PRN Reason: Uterine Bleeding Oxytocin (Oxytocin 10 Unit/1 Ml Inj) 10 unit IM ONCE PRN PRN Reason: Uterine Bleeding Terbutaline Sulfate (Terbutaline 1 Mg/1 Ml Inj) 0.25 mg SUB-Q ONCE PRN PRN Reason: Hyperstimulation/Hypertonicity Review of Systems All systems: negative - Physical Exam Breasts: Positive: deferred Cardiovascular: Regular rate Lungs: Positive: Clear to auscultation Abdomen: Positive: soft Genitourinary (Female): Positive: normal external genitalia Uterus: Positive: enlarged Anus/Rectum: Positive: normal perianal skin Deep Tendon Reflex Grade: Normal +2 - Obstetrical FHR: category 1 Cervical Dilatation: 7 Cervical Effacement Percentage: 70 station: -1 Uterine Contraction Pattern: Regular Uterine Contraction Intensity: Moderate Results All other labs normal. Assessment and Plan A: Active labor @ 40.2 weeks P: Epidural Expect
[2022-06-27] MEDS ORDERED: LACTATED RINGERS 0 ML ONE (09:37)
[2022-06-27 09:52] LABS: Hematocrit 38.7 % (30.3-42.9); Hemoglobin 13.2 gm/dl (10.1-14.3); Mean Corpuscular HGB Conc 34 % (30-34); Mean Corpuscular Volume 88 fl (79-97); Platelet Count 286 K/mm3 (140-440); Red Blood Count 4.38 M/mm3 (3.65-5.03); Red Cell Distribution Width 12.5 % (13.2-15.2)
[2022-06-27] MEDS ORDERED: LOPERAMIDE 2 MG CAP PO NR (10:00)
[2022-06-27] MEDS ORDERED: miSOPROStol 200 MCG TAB PR NR (10:00)
[2022-06-27] MEDS ORDERED: METHYLERGONOVINE MALEATE 0.2 MG/ML VIAL IM NR (10:00)
[2022-06-27] MEDS ORDERED: TERBUTALINE 1 MG/1 ML INJ SUB-Q NR (10:00)
[2022-06-27] MEDS ORDERED: CARBOPROST TROMETHAMINE 250 MCG/1 ML INJ IM NR (10:00)
[2022-06-27] MEDS ORDERED: BUTORPHANOL 2 MG/1 ML INJ IV PRN ×2 (10:00)
[2022-06-27] MEDS ORDERED: OXYTOCIN DRIP 30 UNITS/500 ML BAG IV SCH ×2 (10:00)
[2022-06-27] MEDS ORDERED: ACETAMINOPHEN 325 MG TAB PO PRN ×2 (10:00→16:00)
[2022-06-27] MEDS ORDERED: ePHEDrine SULFATE 50 MG/1 ML INJ IV PRN (10:00)
[2022-06-27] MEDS ORDERED: LIDOCAINE (2%) 20 MG/1 ML VIAL 20 ML MDV INFILTRATI NR (10:00)
[2022-06-27] MEDS ORDERED: OXYTOCIN 10 UNIT/1 ML INJ IM NR (10:00)
[2022-06-27] MEDS ORDERED: NALOXONE 0.4 MG/1 ML INJ IV PRN (10:56)
--- NOTE | 2022-06-27 10:57 | Anesthesia Consultation ---
Anesthesia Consult and Med Hx Date of service: 06/27/22 - Airway Anesthetic Teeth Evaluation: Poor ROM Head & Neck: Adequate Mental/Hyoid Distance: Adequate Mallampati Class: Class II Intubation Access Assessment: Probably Good - Pulmonary Exam CTA: Yes - Cardiac Exam Cardiac Exam: RRR - Pre-Operative Health Status ASA Pre-Surgery Classification: ASA2, ASA3 Proposed Anesthetic Plan: Epidural - Pulmonary Hx Smoking: No Hx Asthma: Yes (as a child) Hx Respiratory Symptoms: No SOB: No COPD: No Hx Pneumonia: No Hx Sleep Apnea: No - Cardiovascular System Hx Hypertension: Yes Hx Coronary Artery Disease: No Hx Heart Attack/AMI: No Hx Angina: No Hx Percutaneous Transluminal Coronary Angioplasty (PTCA): No Hx Cardia Arrhythmia: No Hx Pacemaker: No Hx Internal Defibrillator: No Hx Valvular Heart Disease: No Hx Heart Murmur: No - Central Nervous System Hx Neuromuscular Disorder: No Hx Seizures: No CVA: No Hx Back Pain: Yes Hx Psychiatric Problems: No - Gastrointestinal Hx Ulcer: No Hx Gastroesophageal Reflux Disease: No - Endocrine Hx Renal Disease: No Hx End Stage Renal Disease: No Hx Cirrhosis: No Hx Liver Disease: No Hx Insulin Dependent Diabetes: No Hx Non-Insulin Dependent Diabetes: No Hx Thyroid Disease: No Hx Hypothyroidism: No Hx Hyperthyroidism: No - Hematic Hx Anemia: Yes Hx Sickle Cell Disease: No - Other Systems Hx Alcohol Use: No Hx Substance Use: No Hx Cancer: No Hx Obesity: Yes
[2022-06-27] MEDS ORDERED: fentaNYL-BUPIV 2 MCG/ML-0.125% 200 MCG/100 ML BAG EPIDURAL SCH (11:00)
--- NOTE | 2022-06-27 11:00 | Progress Note ---
Labor Epidural - Labor Epidural Start Time: 10:42 Stop Time: 10:49 Performed by:: PARDEEP JAIN Procedure: Patient is requesting a laboring epidural for laboring pain. Patient IDed, H&P reviewed, all questions and concerns were answered, and consent was signed. Timeout was performed at bedside. Patient in sitting position. Sterile prep and drape was performed. [3] ml of 1% lidocaine skin wheal at L[3]- L [4]. 17- gauge Tuohy epidural needle was advanced to loss of resistance with saline technique 6cm. Single dural perforation via 24 gauge spinal needle placed through the shaft of Epidural needle. Positive CSF via spinal needle. Negative CSF negative blood via Epidural needle. Epidural catheter advanced to [10] centimeters. [NEGATIVE] Aspiration [NEGATIVE] test dose. Negative Paresthesia. Sterile dressing applied. Patient tolerated procedure.
[2022-06-27] MEDS: ePHEDrine SULFATE 50 MG/1 ML INJ IV PRN ×3 (11:16→13:19)
--- NOTE | 2022-06-27 13:01 | Event Note ---
Date: 06/27/22 S:Epidural is in, feeling ok O: VE /-1, arom clear fluid, Pit increased to 6cm A: Active labor at 40.2 weeks P: Expect
--- NOTE | 2022-06-27 15:32 | Procedure Note ---
OB Delivery Note - Delivery Date of Delivery: 06/27/22 Surgeon: YAW CARRILLO Estimated blood loss: other (600) - Vaginal Delivery presentation: vertex Delivery position: OA Delivery augmentation: rupture of membranes, pitocin Delivery monitor: external FHT, external uterine, internal FHT, internal uterine Route of delivery: Delivery placenta: spontaneous Delivery cord: nuchal cord, 3 umbilical vessels Delivery laceration: none Anesthesia: epidural Delivery comments: of a viable male 8# on 06/29 @ 1514 through a loose nuchal cord. PLacenta delivered 3VCI. 7/9. Cytotec 800 mcg per rectum and Methergine 0.2mg im given. QBL 600 cc. Mother and baby doing well - A at 1 minute: 8 at 5 minutes: 9 Gender: Male (8#)
[2022-06-27] MEDS ORDERED: oxyCODONE /ACETAMINOPHEN 5-325MG TAB PO PRN (16:00)
[2022-06-27] MEDS ORDERED: WITCH HAZEL/ GLYCERIN PAD TP PRN (16:00)
[2022-06-27] MEDS ORDERED: LANOLIN/ZINC/DIMETHICONE (LANSINOH) 7 GM TP PRN (16:00)
[2022-06-27] MEDS ORDERED: ONDANSETRON 4 MG/2 ML INJ IV PRN (16:00)
[2022-06-27] MEDS ORDERED: MAGNESIUM HYDROXIDE (MOM) ORAL LIQD UDC PO PRN (22:00)
[2022-06-27] MEDS ORDERED: MINERAL OIL 30 ML ORAL LIQD PO PRN (22:00)
[2022-06-27] MEDS: IBUPROFEN 800 MG TAB PO SCH (23:19)
[2022-06-27] MEDS ORDERED: TETANUS,DIPH,PERTUSS(ACELL) VACCINE 0.5 ML SYRINGE IM ONE (23:31)
[2022-06-28] MEDS: IBUPROFEN 800 MG TAB PO SCH ×3 (04:10→17:07)
[2022-06-28 04:38] LABS: Hematocrit 34.5 % (30.3-42.9); Hemoglobin 11.4 gm/dl (10.1-14.3)
[2022-06-28] MEDS ORDERED: medroxyPROGESTERone ACETATE 150 MG/ML SYRINGE IM ONE (13:05)
--- NOTE | 2022-06-28 13:08 | Progress Note ---
Assessment and Plan A: PP Day #1 Stable P: Follow Routine Orders Depo Provera 150mg IM x 1 dose prior to discharge D/C home today per patient request RTO in 3 Weeks for Sterilization Consult Subjective - Subjective Date of service: 06/28/22 Patient reports: appetite normal, voiding normally, pain well controlled, flatus, bowel movement, ambulating normally : doing well, bottle feeding (and ) Objective - Vital Signs Latest vital signs: Vital Signs Temp Pulse Resp BP BP Pulse Ox Pulse Ox 06/28/22 08:00 99 06/28/22 07:42 97.6 F 70 18 104/68 99 06/28/22 05:10 98 06/28/22 04:07 98 06/28/22 01:30 98 06/28/22 00:38 97.6 F 72 20 111/72 98 06/27/22 23:16 98 06/27/22 21:30 98 06/27/22 20:11 98.5 F 83 20 102/43 98 06/27/22 20:10 98 06/27/22 18:23 97.6 F 86 16 110/57 97 06/27/22 18:19 97 06/27/22 17:31 92 H 99 06/27/22 17:27 86 98 06/27/22 17:21 79 98 06/27/22 17:16 83 99 06/27/22 17:11 88 98 06/27/22 17:06 80 98 06/27/22 17:01 89 100 06/27/22 16:56 94 H 99 06/27/22 16:54 98 H 90 06/27/22 16:53 71 107/55 06/27/22 16:51 67 98 06/27/22 16:47 67 99 06/27/22 16:42 67 98 06/27/22 16:38 67 109/57 06/27/22 16:36 69 99 06/27/22 16:33 79 89 06/27/22 16:31 80 100 06/27/22 16:26 83 98 06/27/22 16:23 82 115/63 06/27/22 16:22 85 98 06/27/22 16:16 72 99 06/27/22 16:11 68 98 06/27/22 16:10 69 118/59 06/27/22 16:06 87 97 06/27/22 16:01 69 99 06/27/22 15:56 77 97 06/27/22 15:53 74 104/65 06/27/22 15:51 83 97 06/27/22 15:46 81 97 06/27/22 15:41 104 H 98 06/27/22 15:38 82 105/64 06/27/22 15:37 88 105/63 06/27/22 15:36 94 H 98 06/27/22 15:32 96 H 100 06/27/22 15:26 86 99 06/27/22 15:24 96 H 98/54 06/27/22 15:21 79 99 06/27/22 15:17 75 100 06/27/22 15:12 73 100 06/27/22 15:07 79 100 06/27/22 15:02 70 100 06/27/22 14:57 74 100 06/27/22 14:52 83 100 06/27/22 14:46 76 99 06/27/22 14:42 75 99 06/27/22 14:39 70 88/54 06/27/22 14:37 74 98 06/27/22 14:31 70 100 06/27/22 14:27 70 100 06/27/22 14:25 65 83/49 06/27/22 14:21 65 100 06/27/22 14:17 79 96 06/27/22 14:11 74 99 06/27/22 14:08 86 103/58 06/27/22 14:07 77 97 06/27/22 14:02 76 98 06/27/22 13:57 76 97 06/27/22 13:53 71 105/58 06/27/22 13:52 75 97 06/27/22 13:46 80 98 06/27/22 13:42 66 97 06/27/22 13:40 71 106/56 06/27/22 13:36 74 97 06/27/22 13:31 71 97 06/27/22 13:26 66 97 06/27/22 13:23 67 96/54 06/27/22 13:21 69 99 06/27/22 13:18 75 86/50 06/27/22 13:17 73 97 06/27/22 13:16 70 90/51 06/27/22 13:15 65 87/52 06/27/22 13:11 70 80/42 96 06/27/22 13:09 74 82/44 06/27/22 13:07 76 80/47 97 Intake and Output 06/27/22 06/28/22 06/28/22 22:59 06:59 14:59 Intake Total 600 1060 Output Total 650 Balance -404 762 8077 Intake: Oral 600 220 Intake, Free Water 840 Output: Urine 650 Self-Catheterization 450 Void 200 Other: Total, Intake Amount 120 220 Total, Output Amount 200 # Voids Void 1 1 5 # Bowel Movements 1 - Exam Breasts: Present: normal Cardiovascular: Present: Regular rate Lungs: Present: Clear to auscultation, Normal air movement Abdomen: Present: normal appearance, soft, normal bowel sounds Uterus: Present: normal, firm, fundal height below umbilicus Extremities: Present: normal
--- NOTE | 2022-06-28 13:10 | Discharge Summary ---
Providers - Providers Date of Admission: 06/27/22 08:58 Date of discharge: 06/28/22 Attending physician: MUKUND PERDOMO MD Primary care physician: MUKUND PERDOMO MD Hospitalization Reason for admission: active labor Delivery: Episiotomy: none Laceration: none Other procedures: none complications: none Discharge diagnosis: IUP at term delivered [place] baby: male Condition at discharge: Good Disposition: 01 HOME / SELF CARE / HOMELESS Plan - Provider Discharge Summary Activity: routine, no sex for 6 weeks, no heavy lifting 4 weeks, no strenuous exercise Diet: routine Instructions: routine Additional instructions: [] Smoking cessation referral if applicable(refer to patient education folder for contact #) [] Refer to [facility]'s [facility] Booklet Call your doctor immediately for: * Fever > 100.5 * Heavy vaginal bleeding ( >1 pad per hour) * Severe persistent headache * Shortness of breath * Reddened, hot, painful area to leg or breast * Drainage or odor from incision. * Keep incision clean and dry at all times and follow doctor's instructions regarding bathing/showering - Follow up plan Follow up: MUKUND PERDOMO MD [Primary Care Provider] - 07/19/22
[2022-06-28 17:50] VITALS: BP 103/72
== END 2022-06-28 18:15 | disposition home or self-care (01) | DRG 774 ==
LOC: TRG 08:55 → LD 08:57 → TRG 09:39 → OB 18:07
PROVIDERS: ADMIT Obstetrics & Gynecology Gynecology; ATTEND Obstetrics & Gynecology Gynecology
PROC: 10E0XZZ Delivery of Products of Conception, External Approach (ICD-10-PCS; principal; 2022-06-27)
PROC: 10907ZC Drainage of Amniotic Fluid, Therapeutic from Products of Conception, Via Natural or Artificial Opening (ICD-10-PCS; 2022-06-27)
PROC: 3E0234Z Introduction of Serum, Toxoid and Vaccine into Muscle, Percutaneous Approach (ICD-10-PCS; 2022-06-27)
PROC: 3E0S3BZ Introduction of Anesthetic Agent into Epidural Space, Percutaneous Approach (ICD-10-PCS; 2022-06-27)
PROC: 00HU33Z Insertion of Infusion Device into Spinal Canal, Percutaneous Approach (ICD-10-PCS; 2022-06-27)
DX: O69.81X0 Labor and delivery complicated by cord around neck, without compression, not applicable or unspecified (principal); O98.32 Other infections with a predominantly sexual mode of transmission complicating childbirth; Z3A.40 40 weeks gestation of pregnancy; Z37.0 Single live birth; Z20.822 Contact with and (suspected) exposure to COVID-19; A60.00 Herpesviral infection of urogenital system, unspecified; O99.334 Smoking (tobacco) complicating childbirth; F17.200 Nicotine dependence, unspecified, uncomplicated; Z23 Encounter for immunization
CPT/HCPCS: 36415; 85014; 85018; 85027; 86850; 86900; 86901; 90471; 90715; 99406; G0378; J3490; J1050; J2590; J7120; U0003